=== PATIENT | female | born 1980 | race African-American/Black ===

== ENCOUNTER 2024-02-07 07:48 | Outpatient (CLI) | payer OTHER | END 2024-02-07 07:49 | disposition home or self-care (01) | LOC: BICULT 07:48 | PROVIDERS: ATTEND Family Medicine | DX: R14.0 Abdominal distension (gaseous) (principal); R10.9 Unspecified abdominal pain; D64.9 Anemia, unspecified; N83.202 Unspecified ovarian cyst, left side; Z90.49 Acquired absence of other specified parts of digestive tract | CPT/HCPCS: 76700; 76856 ==